=== PATIENT | female | born 1950 | race Caucasian/White ===

== ENCOUNTER 2017-02-06 08:55 | Inpatient (IN) | payer OTHER ==
--- NOTE | 2017-01-19 12:12 | HP ---
DATE OF ADMISSION: 02/06/2017 BRIEF HISTORY: This is a 66-year-old female who a year ago noted a lump in her left flank/groin region. She was worked up for this and noted to have an endometrial carcinoma and subsequently underwent a robotic PORTILLO/BSO by Dr. Hernandez. Since her surgery a year ago, the patient states that she still has this lump in the left groin and it has gotten a little bit larger and caused her some discomfort. She now wishes to have the left lump addressed. She has had no nausea, no vomiting, no change in bowel habits. PAST MEDICAL HISTORY: Significant for hypercholesterolemia. She has Maninder's syndrome, uterine cancer, fibromyalgia. She denies coronary artery disease, hypertension, diabetes. PAST SURGICAL HISTORY: As mentioned above. ALLERGIES: None. MEDICATIONS: Sterol, cranberry, vitamins. SOCIAL HISTORY: Patient does not smoke or drink. PHYSICAL EXAMINATION: Lungs: Clear. Heart: Regular. Abdomen: Soft, nontender, nondistended. She has well-healed robotic hysterectomy scars. She has a mass noted in the left groin. This mass is lateral to the pubic tubercle and inferior to the anterior iliac spine. The mass is approximately the size of a golf ball and appears to be above the inguinal ligament. There is also an overlying scar from a previous trocar site. IMPRESSION/PLAN: Left groin mass. This is a 66-year-old female with a 1-year history of having a left groin mass. Given the history that this has been there prior to her robotic hysterectomy, I suspect she has a left groin hernia; however, given the location of the scar and this mass as well, I cannot entirely rule out an incisional hernia or port site hernia. At this point, I would recommend an open repair because of this discrepancy. Patient will be scheduled for a left groin exploration, repair of left abdominal wall hernia with mesh. The indications, alternatives, and complications were discussed. Questions answered. We will plan to obtain written consent the day of surgery. JORGE JIMENEZ M.D. [id number] cc: Jenny Avila MD, [address] [place] [address],
[2017-02-02 14:15] VITALS: BMI 25.2
[2017-02-06] MEDS ORDERED: PROPOFOL 20 ML ONE ×2 (12:24→14:18)
[2017-02-06] MEDS ORDERED: ROCURONIUM BROMIDE 50 MG/5 ML VIAL ONE ×2 (12:25→14:17)
[2017-02-06] MEDS ORDERED: BUPIVACAINE HCL/PF (5 MG/ML) 30 ML VIAL IJ ONE (13:02)
[2017-02-06] MEDS ORDERED: MIDAZOLAM HCL 2 MG/2 ML SINGLE DOSE VIAL ONE (13:02)
[2017-02-06] MEDS ORDERED: DEXAMETHASONE SOD PHOSPHATE/PF 10 MG/ML SDV ONE (13:02)
[2017-02-06] MEDS ORDERED: ceFAZolin SODIUM 1 GM VIAL ONE (13:42)
[2017-02-06] MEDS ORDERED: ONDANSETRON 4 MG/2 ML VIAL ONE ×2 (13:44→15:40)
[2017-02-06] MEDS ORDERED: DEXAMETHASONE SOD PHOSPHATE 4 MG/1 ML VIAL ONE (13:44)
[2017-02-06] MEDS ORDERED: BUPIVACAINE HCL/PF 0.5% (5MG/ML) 10 ML VIAL ONE (14:12)
[2017-02-06] MEDS ORDERED: NEOSTIGMINE METHYLSULFATE 0.5 MG/ML - 10 ML MDV ONE (14:49)
[2017-02-06] MEDS ORDERED: oxyCODONE HCL 5 MG TABLET PO PRN ×3 (14:58→15:00)
[2017-02-06] MEDS ORDERED: morphine CARPU-JECT 2 MG/1 ML DISP.SYRIN IVPB PRN (14:58)
[2017-02-06] MEDS ORDERED: D5-1/2NS+20 MEQ KCL - 20 MEQ/1,000 ML INFUS.BAG IV SCH (15:00)
[2017-02-06] MEDS ORDERED: ONDANSETRON 4 MG/2 ML VIAL IVPUSH PRN (15:00)
--- NOTE | 2017-02-06 19:45 | OP ---
DATE OF OPERATION: 02/06/2017 PREOPERATIVE DIAGNOSIS: Left-sided abdominal wall hernia. POSTOPERATIVE DIAGNOSIS: Left Spigelian hernia, left inguinal hernia (indirect). PROCEDURE: Repair of left Spigelian hernia with mesh, left component separation, repair of left inguinal hernia with mesh. SURGEON: Fredy Canela MD PICKING MACHINE OPERATOR HELPER: Jim Cooper DO ANESTHESIA: Latasha Edwards MD (general). ESTIMATED BLOOD LOSS: Minimal. SPECIMEN: Portion of round ligament and hernia sac. INDICATION FOR PROCEDURE: This is a 66-year-old female who presented to the office with a complaint of having a lump and pain in the left lower abdomen. On physical examination, she clearly has a left abdominal wall hernia using the patient's landmarks (patient had lost approximately 165 pounds and has excessive amount of tissue). DESCRIPTION OF PROCEDURE: The patient identified and appropriately positioned on the operating room table. After placement of general anesthesia, the abdomen prepped and draped in the usual sterile fashion with ChloraPrep. A left lower abdominal wall incision was made and deepened through the subcutaneous tissue. The fascia of the external oblique identified. Patient was given approximately 50 mmHg of Valsalva, and there appeared to be a protrusion deep to the fascia of the external oblique consistent with a Spigelian hernia. The fascia of the external oblique was then subsequently opened in the direction of its fibers, and the patient clearly had a Spigelian hernia identified. The Spigelian hernia was dissected free from the undersurface of the fascia of the external oblique. At this point, the incision of the fascia of the external oblique was carried to the level of the pubis and the groin examined as well. The reason to examine the groin is the patient, on physical examination, had a mass that was noted. However, due to the excessive skin tissue, an inguinal hernia causing this could not be entirely ruled out, but given the operative findings, I thought it was most likely related to a Spigelian hernia. Palpation of the inguinal region revealed a moderate weakness in the inguinal floor down to the level of the internal ring. Given this finding, the round ligament was then subsequently isolated. There was a hernia sac associated with the round ligament of moderate size. The sac was off the round ligament and the sac opened. The sac consistent with a slider. The sac was then suture ligated above the sliding component and subsequently divided. The specimen was handed off as portion of round ligament as well as hernia sac. The sac reduced back into the internal ring, and a simple Bassini repair was used to close the actual floor of the direct inguinal space as well as the internal ring which was obliterated. Attention now focused back to the patient's Spigelian hernia defect. This space was then subsequently developed bluntly, and going medially, the fascia of the rectus muscle was then subsequently divided. The myofascial separation of the rectus from the transversus along from the obliques was done with the cautery. This was done approximately 4 inches above and below the actual defect. A piece of the transversus and internal obliques was then closed overlying the Spigelian defect. This was done with interrupted No. 1 PDS suture. A piece of ProGrip 15 x 15 was cut to the appropriate size, placed into the subfascial space below the obliques and extended onto the rectus just beyond the myofascial separation, and this was then placed overlying the pubis as well. The inguinal floor as well as the floor underneath the external oblique was then reinforced with the ProGrip. The ProGrip was then anchored at the pubis with the Covubitus ReliaTack. The mesh itself on the musculature was left in place by the ProGrip. The wound was then irrigated. The operative field examined, noted to be hemostatic. The fascia of the external oblique was then reapproximated with a running 0 PDS suture. The subcutaneous space irrigated. This patient had a large amount of subcutaneous tissue due to the excessive skin she has, and therefore, a 10 flat STALIN was placed below that through a separate stab incision medially. Princess's was reapproximated with interrupted inverted 3-0 Vicryl suture and the skin closed with a running V-Loc 4-0 suture, followed by Dermabond. At the conclusion of the case, sponge and needle counts correct. ATTESTATION: A brief operative note handwritten on the preprinted form. [facility] will be queried prior to giving any narcotics. Karey TREJO [id number]
[2017-02-06] MEDS: ACETAMINOPHEN 325 MG TABLET (FP) PO PRN (19:55)
[2017-02-07] MEDS: ACETAMINOPHEN 325 MG TABLET (FP) PO PRN (04:19)
[2017-02-07 06:40] VITALS: BP 112/56; PULSE 66; TEMP 98
[2017-02-07] MEDS ORDERED: ENOXAPARIN NA (PORCINE) 40 MG/0.4 ML DISP.SYRIN SQ SCH (10:00)
--- NOTE | 2017-02-07 10:33 | DS ---
DATE OF ADMISSION: 02/06/2017 DATE OF DISCHARGE: 02/07/2017 ADMITTING DIAGNOSIS: Complex ventral abdominal wall hernia. DISCHARGE DIAGNOSIS: Complex ventral abdominal wall hernia. BRIEF HISTORY: A 66-year-old female who is admitted to [facility] for surgical management of a complex ventral hernia. She underwent a repair utilizing mesh and component separation as well as myofascial release. Please reference Dr. Fredy Canela's operative note for further details. She is being discharged home today, February 07, tolerating diet and voiding. She will go home with a new prescription for Percocet, which she will take as needed. She will resume her usual home medications of vitamins and natural thyroid. She will follow with Dr. Canela next week to be evaluated for Dev-Tenorio drain removal. She will empty it daily and record the amount. DO ELISA ARNOLD/[id number] MTDD
--- NOTE | 2017-02-10 16:14 | PATH ---
Surgical Pathology Report Patient Name: DARIANA MCNULTY Med. Rec. #: [id number] /Age/Gender: 1950 (Age: 66) / F Account: [id number] Location: [facility] Taken: 02/06/2017 Received: 02/06/2017 Reported: 02/10/2017 Physicians: Fredy Canela Specimen(s) Received HERNIA SAC AND REMNANT OF ROUND LIGAMENT Clinical History Unilateral inguinal hernia Final Diagnosis HERNIA SAC AND REMANENT OF ROUND LIGAMENT, EXCISION: HERNIA SAC. FIBROCOLLAGENOUS TISSUE, CONSISTENT WITH ROUND LIGAMENT. Electronically Signed Ana Allison M.D. Gross Description Received in formalin labeled "hernia sac and remnant of round ligament," is a 4.5 x 3.0 x 1.5 cm aggregate of flores-yellow fragments of fibromembranous tissue with attached fat. [employer] Mechanical Solar Technician sections are submitted in one cassette. 02/09/201702/09/2017
== END 2017-02-07 10:15 | disposition home or self-care (01) | DRG 352 ==
LOC: FASU 08:55 → EDSTATUS 11:15 → FM/S 15:00 → FASU 15:00 → FM/S 15:00
PROVIDERS: ADMIT Surgery; ATTEND Surgery
PROC: 0WUF0JZ Supplement Abdominal Wall with Synthetic Substitute, Open Approach (ICD-10-PCS; 2017-02-06)
PROC: 0WQF0ZZ Repair Abdominal Wall, Open Approach (ICD-10-PCS; 2017-02-06)
PROC: 0YU60JZ Supplement Left Inguinal Region with Synthetic Substitute, Open Approach (ICD-10-PCS; principal; 2017-02-06 13:51)
DX: K40.90 Unilateral inguinal hernia, without obstruction or gangrene, not specified as recurrent (principal); K43.9 Ventral hernia without obstruction or gangrene; E78.00 Pure hypercholesterolemia, unspecified; E06.3 Autoimmune thyroiditis; M79.7 Fibromyalgia; Z85.42 Personal history of malignant neoplasm of other parts of uterus; Z90.710 Acquired absence of both cervix and uterus
CPT/HCPCS: 88304-TC; 94760